=== PATIENT | male | born 1975 | race African-American/Black ===

== ENCOUNTER 2019-09-12 08:57 | Emergency (ER) | payer OTHER ==
--- NOTE | 2019-09-12 09:02 | PDOC ---
Rapid Medical Evaluation Time Seen by Provider: 09/12/19 08:59 Medical Evaluation: 09/12/19 08:59 CC: was moving furniture over this weekend and now with pain to rt knee with swelling, hx gout but not sim s/s Exam: noted diffuse edema to rt knee, no skin discoloration, LROM with flexion, no crepitus, no increased warmth Plan: xray knee Discharge Disposition - Diagnosis Knee pain - Referrals - Patient Instructions - Post Discharge Activity
[2019-09-12] MEDS ORDERED: NAPROXEN 500 MG TABLET PO ONE (09:23)
[2019-09-12] MEDS ORDERED: NAPROXEN 500 MG TABLET ONE (09:25)
--- NOTE | 2019-09-12 09:30 | PDOC ---
History of Present Illness - General Chief Complaint: Pain, Acute Stated Complaint: RT KNEE PAIN Time Seen by Provider: 09/12/19 08:59 History Source: Patient Exam Limitations: Clinical Condition - History of Present Illness Initial Comments: 09/12/19 09:25 Patient with past medical history of gout present with complaint of one-week history of swelling and pain to right knee status post heavy lifting while helping her brother move a week ago and feels he might have injured the right knee. Denies hitting knee or trauma to the knee. Patient reported pain and swelling started as mild which has progressively been getting worse. Patient has not taken anything for pain. Denies numbness or tingling sensation, fever, redness to skin of the knee. Denies any other symptoms Is this a multiple visit Asthma Patient?: No Timing/Duration: 1 week Past History - Medical History Allergies/Adverse Reactions: Allergies Allergy/AdvReac Type Severity Reaction Status Date / Time No Known Allergies Allergy Verified 09/12/19 09:04 Home Medications: Ambulatory Orders Naproxen 500 mg PO BID PRN #20 tablet 09/12/19 COPD: No Other medical history: gout - Immunization History Immunization Up to Date: No - Psycho-Social/Smoking History Smoking History: Never smoked Have you smoked in the past 12 months: No Information on smoking cessation initiated: No - Substance Abuse Hx (Audit-C & DAST Scrn) How often the patient has a drink containing alcohol: Never Score: In Men: 4 or > Positive; In Women: 3 or > Positive: 0 Screen Result (Pos requires Nsg. Audit-10AR): Negative In the last yr the pt used illegal drug/Rx for NonMed reason: No Score: Yes response is considered Positive: 0 Screen Result (Positive result requires Nsg. DAST-10): Negative Review of Systems - Review of Systems Able to Perform ROS?: Yes Is the patient limited [place] proficient: No Constitutional: No: Chills, Fever, Malaise HEENTM: No: Symptoms Reported, See HPI, Eye Pain, Blurred Vision, Tearing, Recent change in vision, Double Vision, Cataracts, Ear Pain, Ocular Prothesis, Ear Discharge, Nose Pain, Nose Congestion, Tinnitus, Nose Bleeding, Hearing Loss, Throat Pain, Throat Swelling, Mouth Pain, Dental Problems, Difficulty Swallowing, Mouth Swelling, Other Respiratory: No: Symptoms reported, See HPI, Cough, Orthopnea, Shortness of Breath, SOB with Exertion, SOB at Rest, Stridor, Wheezing, Productive cough, Hemoptysis, Other Cardiac (ROS): No: Symptoms Reported ABD/GI: No: Symptoms Reported Musculoskeletal: Yes: Symptoms Reported, See HPI, Joint Pain (Right knee), Joint Swelling (Right knee) Integumentary: No: Symptoms Reported, Change in Color, Erythema Neurological: No: Numbness, Paresthesia, Tingling, Weakness All Other Systems: Reviewed and Negative *Physical Exam - Vital Signs Last Vital Signs Temp Pulse Resp BP Pulse Ox 99.0 F 80 18 139/89 97 09/12/19 09:00 09/12/19 09:00 09/12/19 09:00 09/12/19 09:00 09/12/19 09:00 - Physical Exam 09/12/19 09:28 GENERAL: Well developed, well nourished. Awake and alert in mild acute distress. PULMONARY: No evidence of respiratory distress. MUSCULOSKELETAL : Mild tenderness over anterior patellar and lateral collateral ligament of right knee with mild swelling over infrapatellar lateral collateral ligament of right knee. Negative ballottement sign. Negative anterior and posterior drawer test. No joint laxity. SKIN: Warm and dry. Normal capillary refill. No skin erythema or increased warmth. Mild swelling to patellar on lateral side of right knee NEUROLOGICAL: Alert, awake, appropriate. No motor deficits in the lower extremities. Gait is normal without ataxia. PSYCHIATRIC: Cooperative. Good eye contact. Appropriate mood and affect. General Appearance: Yes: Nourished, Appropriately Dressed. No: Apparent Distress Medical Decision Making - Medical Decision Making 09/12/19 09:26 Patient with past medical history of gout present with complaint of one-week history of swelling and pain to right knee status post heavy lifting while helping her brother move a week ago and feels he might have injured the right knee. Denies hitting knee or trauma to the knee. Patient reported pain and swelling started as mild which has progressively been getting worse. Patient has not taken anything for pain. Denies numbness or tingling sensation, fever, redness to skin of the knee. Denies any other symptoms Exam significant for mild swelling to infrapatellar and over lateral collateral ligament of right knee. No joint effusions. No ballottement sign. Negative anterior and posterior drawer test of right knee. No skin erythema or increased warmth. No crepitus or laxity to knee. X-ray right knee shows mild joint effusion otherwise with no acute findings. Patient symptoms likely knee sprain. Knee wrapped with Brian bandage. Naproxen 500mg p.o. given for pain. Patient stable for discharge on naproxen as needed for pain with advised to do hot compresses and elevate leg with orthopedics follow-up Discharge - Discharge Information Problems reviewed: Yes Clinical Impression/Diagnosis: Knee pain Qualifiers: Chronicity: acute Laterality: right Qualified Code(s): M25.561 - Pain in right knee Condition: Stable Disposition: HOME - Admission No - Additional Discharge Information Prescriptions: Naproxen 500 mg PO BID PRN #20 tablet PRN Reason: knee pain - Follow up/Referral Referrals: Tom Gotti DO [Staff Physician] - - Patient Discharge Instructions Patient Printed Discharge Instructions: DI for Knee Sprain, How to Use an Elastic Bandage-Knee Sprain Additional Instructions: X-ray of your knee shows no acute fracture or normality. Your pain is likely from knee sprain. Take prescribed medication as prescribed for pain. Use provided Brian bandage to help support knee. Apply heat to knee as needed for swelling and keep leg elevated. Follow-up referred orthopedics as needed - Post Discharge Activity
[2019-09-12 09:31] VITALS: BP 139/89; PULSE 80; TEMP 99; BMI 29.9
== END 2019-09-12 09:36 | disposition home or self-care (01) ==
LOC: JER 08:57
DX: M25.561 Pain in right knee (principal)
CPT/HCPCS: 73562-TC-RT-FY; 99284-25